=== PATIENT | female | born 1990 | race Caucasian/White ===

== ENCOUNTER 2017-09-29 18:15 | Emergency (ER) | payer OTHER ==
[~2017-09-29] VITALS: Ht 160 cm; Wt 103.4 kg
[~2017-09-29 18:15] MED LIST: AMOCLA875 PO; AMOX875 PO; CEPH500 PO; CITA20 PO; CLOT1TC TOP; CODACEE120 PO; CODGUAEL PO; Citalopram HBr10 MG; DOXY100 PO; HYDACE5 PO; IBUP600 PO; IBUP800 PO; MEDR10 PO; METF500 PO; NAPR500 PO; Naprosyn500 MG PO; PRED20 PO; PROC10 PO; PSEU120ER PO; Percocet 5-3251 EACH PO; Provera10 MG PO; RXPROM25 PO; SPIR25; SPIR25 PO; TRAM50 PO; Ultram50 MG PO; Verotin-Gr Cap1 EACH
[2017-09-29] MEDS ORDERED: METPRE4DP PO (18:35)
[2017-09-29] MEDS ORDERED: TRIA15CR3 TOP (18:35)
[2017-09-29] MEDS ORDERED: HYDHCL25 PO (18:36)
== END 2017-09-29 18:55 | disposition home or self-care (01) ==
LOC: ER 18:15
DX: L25.5 Unspecified contact dermatitis due to plants, except food (principal); E28.2 Polycystic ovarian syndrome; F17.210 Nicotine dependence, cigarettes, uncomplicated; Z79.899 Other long term (current) drug therapy; Z79.84 Long term (current) use of oral hypoglycemic drugs
CPT/HCPCS: J1200

== ENCOUNTER 2017-12-20 19:57 | Emergency (ER) | payer OTHER ==
[~2017-12-20] VITALS: Ht 160 cm; Wt 109.3 kg
[~2017-12-20 19:57] MED LIST changes: +HYDHCL25 PO; +METPRE4DP PO; +TRIA15CR3 TOP
[2017-12-20] MEDS ORDERED: Cleocin HCl300 MG PO (20:55)
== END 2017-12-20 21:10 | disposition home or self-care (01) ==
LOC: ER 19:57
DX: L02.415 Cutaneous abscess of right lower limb (principal); Z88.8 Allergy status to other drugs, medicaments and biological substances; Z79.899 Other long term (current) drug therapy; Z79.84 Long term (current) use of oral hypoglycemic drugs; F17.200 Nicotine dependence, unspecified, uncomplicated
CPT/HCPCS: 10060; 99282-25